=== PATIENT | female | born 1960 | race Caucasian/White ===

== ENCOUNTER 2018-10-21 16:12 | Emergency (ER) | payer BC ==
[~2018-10-21] VITALS: Ht 160 cm; Wt 68.0 kg
[2018-10-21] MEDS ORDERED: HYDROcodone/acetaminophen 10/325mg tab PO ONE (16:30)
[2018-10-21] MEDS ORDERED: METH4TAB81 PO (16:39)
[2018-10-21] MEDS ORDERED: ACET1TAB12 PO (16:39)
[2018-10-21 17:12] VITALS: BP 162/95
== END 2018-10-21 17:15 | disposition home or self-care (01) ==
LOC: ER 16:13
DX: M54.5 Low back pain (principal); G89.29 Other chronic pain; Z79.899 Other long term (current) drug therapy
CPT/HCPCS: 72100; 99283

== ENCOUNTER 2018-11-15 19:12 | Emergency (ER) | payer BC ==
[~2018-11-15] VITALS: Ht 160 cm; Wt 65.0 kg
[~2018-11-15 19:12] MED LIST: ACET1TAB12 PO; METH4TAB81 PO
[2018-11-15] MEDS ORDERED: LORazepam 1 MG tablet PO ONE (20:45)
[2018-11-15] MEDS ORDERED: LORA0.5T PO (22:19)
[2018-11-15 22:21] VITALS: BP 151/94
== END 2018-11-15 22:34 | disposition home or self-care (01) ==
LOC: ER 19:12
DX: F41.0 Panic disorder [episodic paroxysmal anxiety] (principal); M25.551 Pain in right hip; M54.5 Low back pain; G89.29 Other chronic pain; R42 Dizziness and giddiness; R51 Headache; I10 Essential (primary) hypertension; Z79.899 Other long term (current) drug therapy
CPT/HCPCS: 99284

== ENCOUNTER 2020-08-25 19:28 | Emergency (ER) | payer BC ==
[~2020-08-25] VITALS: Ht 160 cm; Wt 66.3 kg
[2020-08-25 19:44] VITALS: BP 159/64
[2020-08-25] MEDS ORDERED: PRED20TA PO (21:23)
[2020-08-25] MEDS ORDERED: diphenhydrAMINE 25mg capsule PO ONE (21:25)
[2020-08-25] MEDS ORDERED: famotidine 20mg tablet PO ONE (21:25)
[2020-08-25] MEDS ORDERED: dexamethasone 4mg tablet PO ONE (21:25)
== END 2020-08-25 21:44 | disposition home or self-care (01) ==
LOC: ER 19:29
DX: K04.7 Periapical abscess without sinus (principal); R21 Rash and other nonspecific skin eruption; T45.0X5A Adverse effect of antiallergic and antiemetic drugs, initial encounter; G89.29 Other chronic pain; Z79.899 Other long term (current) drug therapy; Y92.89 Other specified places as the place of occurrence of the external cause
CPT/HCPCS: 99284; Q0163